=== PATIENT | female | born 1950 | race Asian ===

== ENCOUNTER 2018-05-14 15:35 | Emergency (ER) | payer MEDICAID ==
[~2018-05-14] VITALS: Ht 149.9 cm; Wt 58.5 kg
[2018-05-14 15:48] VITALS: Ht 149.9 cm; Wt 58.5 kg
[2018-05-14 16:23] LABS: BASOPHIL % 0.8 % (0-2)
[2018-05-14 16:27] LABS: PLATELET COUNT 428 x10^3mcL (130-400); RED CELL DISTRIBUTION WIDTH 23.8 % (11.5-14.5)
[2018-05-14 16:36] LABS: CALCIUM 8.1 mg/dL (8.5-10.1); CARBON DIOXIDE 25.4 mmol/L (21-32); CHLORIDE SERUM 92 mmol/L (98-107); CREATININE SERUM 0.7 mg/dL (0.6-1.0); GFR1 > 60 mL/min; GLUCOSE SERUM 106 mg/dL (74-106); POTASSIUM SERUM 3.7 mmol/L (3.5-5.1); SODIUM SERUM 126 mmol/L (136-145)
[2018-05-14 17:16] VITALS: BP 129/64
== END 2018-05-14 17:17 | disposition home or self-care (01) ==
LOC: ED 15:35
PROVIDERS: Emergency Medicine
DX: K62.89 Other specified diseases of anus and rectum (principal)
CPT/HCPCS: J3010

== ENCOUNTER 2018-05-23 19:43 | Inpatient (IN) | payer MEDICAID ==
[~2018-05-23] VITALS: Ht 154.9 cm; Wt 59.9 kg
[2018-05-23 20:04] VITALS: Ht 154.9 cm; Wt 59.9 kg
[2018-05-23 20:45] LABS: CALCIUM 8.4 mg/dL (8.5-10.1); CARBON DIOXIDE 26.7 mmol/L (21-32); CHLORIDE SERUM 93 mmol/L (98-107); CREATININE SERUM 0.6 mg/dL (0.6-1.0); GFR1 > 60 mL/min; GLUCOSE SERUM 128 mg/dL (74-106); POTASSIUM SERUM 3.9 mmol/L (3.5-5.1); SODIUM SERUM 128 mmol/L (136-145)
[2018-05-23 20:49] LABS: ALKALINE PHOSPHATASE 124 U/L (46-116); ALT/SGPT 10 U/L (14-59); AST/SGOT 13 U/L (15-37); BILIRUBIN TOTAL 0.32 mg/dL (0.20-1.00); LIPASE 64 IU/L (73-393); TOTAL PROTEIN, SERUM 6.4 g/dL (6.4-8.2)
[2018-05-23 20:50] LABS: ALBUMIN 1.7 g/dL (3.4-5.0)
[2018-05-23 20:52] LABS: BASOPHIL % 0.4 % (0-2); PLATELET COUNT 344 x10^3mcL (130-400)
[2018-05-23 21:11] LABS: RED CELL DISTRIBUTION WIDTH 22.9 % (11.5-14.5)
[2018-05-23 21:43] LABS: UA SPECIFIC GRAVITY <=1.005 (1.005-1.035); microscopic required? YES; urine erythrocyte TRACE (NEGATIVE)
[2018-05-23 21:52] LABS: rbc morphology (normal/abnorm) ABNORMAL (NORMAL)
[2018-05-24] MEDS ORDERED: COLACE100 MG PO (00:32)
[2018-05-24] MEDS ORDERED: NORCO1 TA2 PO (00:33)
[2018-05-24] MEDS ORDERED: PROCTOCREAM-HC2.5% TOP (00:33)
[2018-05-24 01:17] LABS: MAGNESIUM 1.8 mg/dL (1.8-2.4); PHOSPHOROUS 3.4 mg/dL (2.5-4.9)
[2018-05-24 01:21] LABS: T3 TOTAL 1.14 ng/mL
[2018-05-24 01:22] LABS: CHOLESTEROL/HDL RATIO 2.9
[2018-05-24 01:24] LABS: FREE T4 1.44 ng/dL (0.76-1.46); FREE THYROXINE INDEX 2.8 ug/dL (1.4-4.5); T4(THYROXINE) 7.9 ug/dL (4.7-13.3)
[2018-05-24 01:54] VITALS: BP 126/68
[2018-05-24 03:43] LABS: IRON 20 ug/dL (50-170); TOTAL IRON BINDING CAPACITY 139 ug/dL (250-450)
[2018-05-24 04:59] LABS: RED BLOOD CELLS 2.99 M/mm3 (4.10-5.10)
[2018-05-24 06:01] VITALS: BP 109/58
[2018-05-24 07:17] LABS: BASOPHIL % 0.4 % (0-2); PLATELET COUNT 370 x10^3mcL (130-400)
[2018-05-24 07:25] LABS: RED CELL DISTRIBUTION WIDTH 24.4 % (11.5-14.5)
[2018-05-24 07:40] LABS: CALCIUM 7.4 mg/dL (8.5-10.1); CARBON DIOXIDE 25.6 mmol/L (21-32); CHLORIDE SERUM 97 mmol/L (98-107); CREATININE SERUM 0.6 mg/dL (0.6-1.0); GFR1 > 60 mL/min; GLUCOSE SERUM 87 mg/dL (74-106); POTASSIUM SERUM 3.6 mmol/L (3.5-5.1); SODIUM SERUM 131 mmol/L (136-145)
[2018-05-24 09:03] LABS: AMPHETAMINE QUAL UR NONE DETECTED (See below)
[2018-05-24 13:27] VITALS: BP 116/56
[2018-05-24 17:34] VITALS: BP 118/64
[2018-05-24 20:30] VITALS: BP 110/60
[2018-05-25 05:33] VITALS: BP 139/60
[2018-05-25 07:21] LABS: CARBON DIOXIDE 24.9 mmol/L (21-32); CHLORIDE SERUM 105 mmol/L (98-107); CREATININE SERUM 0.6 mg/dL (0.6-1.0); GFR1 > 60 mL/min; GLUCOSE SERUM 99 mg/dL (74-106); MAGNESIUM 2.2 mg/dL (1.8-2.4); PHOSPHOROUS 3.5 mg/dL (2.5-4.9); POTASSIUM SERUM 3.1 mmol/L (3.5-5.1); SODIUM SERUM 137 mmol/L (136-145)
[2018-05-25 07:26] LABS: BASOPHIL % 0.2 % (0-2); PLATELET COUNT 386 x10^3mcL (130-400)
[2018-05-25 07:27] LABS: RED CELL DISTRIBUTION WIDTH 21.8 % (11.5-14.5)
[2018-05-25 07:29] LABS: rbc morphology (normal/abnorm) ABNORMAL (NORMAL)
[2018-05-25 10:02] VITALS: BP 126/69
[2018-05-25 14:02] VITALS: BP 121/64
[2018-05-25 18:28] VITALS: BP 125/68
[2018-05-25 21:32] VITALS: BP 138/68
[2018-05-26 05:46] VITALS: BP 129/74
[2018-05-26 07:14] LABS: BASOPHIL % 0.4 % (0-2); PLATELET COUNT 388 x10^3mcL (130-400)
[2018-05-26 07:16] LABS: RED CELL DISTRIBUTION WIDTH 24.2 % (11.5-14.5)
[2018-05-26 07:19] LABS: CALCIUM 7.8 mg/dL (8.5-10.1); CARBON DIOXIDE 25.3 mmol/L (21-32); CHLORIDE SERUM 105 mmol/L (98-107); CREATININE SERUM 0.6 mg/dL (0.6-1.0); GFR1 > 60 mL/min; GLUCOSE SERUM 116 mg/dL (74-106); MAGNESIUM 2.4 mg/dL (1.8-2.4); PHOSPHOROUS 3.5 mg/dL (2.5-4.9); POTASSIUM SERUM 3.2 mmol/L (3.5-5.1); SODIUM SERUM 137 mmol/L (136-145)
[2018-05-26 09:56] VITALS: BP 137/71
[2018-05-26 10:03] LABS: ovalocyte/elliptocyte 1+; rbc morphology (normal/abnorm) ABNORMAL (NORMAL)
[2018-05-26 13:14] VITALS: BP 137/68
[2018-05-26 17:59] VITALS: BP 121/82
[2018-05-26 20:59] VITALS: BP 127/66
[2018-05-27 05:26] VITALS: BP 115/48
[2018-05-27 09:41] VITALS: BP 130/60
[2018-05-27] MEDS ORDERED: PREPARATION H1 EAC2 PR (12:17)
[2018-05-27 12:41] VITALS: BP 130/60
[2018-05-27 13:41] VITALS: BP 145/68
== END 2018-05-27 15:17 | disposition home or self-care (01) | DRG 241 ==
LOC: ED 19:43 → DU 05-24 00:07
PROVIDERS: Emergency Medicine; Family Medicine; Internal Medicine; Internal Medicine Gastroenterology
PROC: 0DB68ZX Excision of Stomach, Via Natural or Artificial Opening Endoscopic, Diagnostic (ICD-10-PCS; principal; 2018-05-25 09:15)
DX: K29.70 Gastritis, unspecified, without bleeding (principal); E43 Unspecified severe protein-calorie malnutrition; K52.1 Toxic gastroenteritis and colitis; E83.51 Hypocalcemia; C19 Malignant neoplasm of rectosigmoid junction; D63.0 Anemia in neoplastic disease; E87.1 Hypo-osmolality and hyponatremia; G62.0 Drug-induced polyneuropathy; T45.1X5A Adverse effect of antineoplastic and immunosuppressive drugs, initial encounter; R73.03 Prediabetes; I10 Essential (primary) hypertension; E78.00 Pure hypercholesterolemia, unspecified; Z68.23 Body mass index [BMI] 23.0-23.9, adult; Z92.3 Personal history of irradiation; Y92.009 Unspecified place in unspecified non-institutional (private) residence as the place of occurrence of the external cause
CPT/HCPCS: 43235; 83880; 84439; 87046; 87046-59; C9113; J1170; J1200; J1610; J1885; J1956; J2250; J2270; J2310; J2405; J2765; J3010; J3490; J7030; Q0092; Q9967

== ENCOUNTER 2018-08-12 11:03 | Emergency (ER) | payer MEDICAID ==
[~2018-08-12] VITALS: Ht 157.5 cm; Wt 56.7 kg
[~2018-08-12 11:03] MED LIST: COLACE100 MG PO; NORCO1 TA2 PO; PREPARATION H1 EAC2 PR; PROCTOCREAM-HC2.5% TOP
[2018-08-12 11:16] VITALS: BP 139/76; Ht 157.5 cm; Wt 56.7 kg
== END 2018-08-12 11:54 | disposition home or self-care (01) ==
LOC: ED 11:03
DX: T63.481A Toxic effect of venom of other arthropod, accidental (unintentional), initial encounter (principal); Z93.3 Colostomy status; Z85.038 Personal history of other malignant neoplasm of large intestine; Y92.89 Other specified places as the place of occurrence of the external cause